=== PATIENT | female | born 1970 | race African-American/Black ===

== ENCOUNTER 2016-12-06 08:25 | Emergency (ER) | payer MEDICARE, MEDICAID ==
[~2016-12-06] VITALS: Ht 160 cm; Wt 117.9 kg
[~2016-12-06 08:25] MED LIST: ACCUPRIL PO; ATENOLOL25 MG PO; AUGMENTIN1 TA2 PO; BACTROBAN CR, 115 GM EX; CLINDAMYCIN300 MG PO; COREG25 MG PO; DILAUDID4 MG PO; FENOFIBRATE160 MG PO; FUROSEMIDE40 MG PO; GABAPENTIN 600600 MG PO; HYDROCODONE/ACE1 TA5 PO; HYDROCODONE1 TABLET PO; HYDROMORPHONE 44 MG PO; INSULIN GL100 UNITS/ SC; KEFLEX 500MG.500 MG PO; KLOR-CON M2020 MEQ PO; LORTAB 5/500 501 TAB PO; METFORMIN1000 MG PO; MINOCYCLINE 10100 MG PO; Monodox100 MG PO; NICODERM C21 MG/24 H TD; NORVASC 10MG. T10 MG PO; OMEPRAZOLE20 MG PO; PHENERGAN 25MG.25 M1 PO; QUINAPRIL20 MG PO; SPIRONOLACTONE25 MG PO; TYLENOL W/CODEI1 TA2 PO; [UNRECOGNIZED DRUG - OTHER] PO
--- NOTE | 2016-12-06 08:42 | Emergency Room Report ---
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 N Clinical Suspician of Infection? Y Mental Status: 1 - Regular (Normal Baseline) Sepsis Risk:Low Sepsis Risk Have you (or family members/close friends) recently traveled outside the [place]? N If Yes, where/when: Have you had exposure to infectious disease within the past month? TB? Other? Specify: Source patient, RN notes reviewed, RN/MD Exam Limitations no limitations Comment This is a 46-year-old Afro-English lady presenting the emergency room that underwent a total abdominal hysterectomy due to a RIGHT ovarian tumor on 07/27/[address] Chakraborty. The patient had some postop complications leading her to be transferred to [facility] on 08[facility]04[facility], leaving her with a dehicient post op wound, that is being packed 2x/day since. Her visiting nurse comes to the house on Wednesdays, to assist her with the wound care. He [facility] surgeon was dr. Martel (per patient). The patient is in this emergency room this morning because her "abdominal pain is different" and "wound drainage has changed color from clear to green". Patient denies any fever, back pain, nausea, or vomiting. ALLERGIES Coded Allergies: codeine (Mild, ITCHING 12/06/16) naproxen (Mild, I-ITCHING 12/06/16) propoxyphene (Mild, ITCHING 12/06/16) tramadol (Mild, ITCHING 12/06/16) Sulfa (Sulfonamide Antibiotics) (Mild, NA-NAUSEA 12/06/16) ciprofloxacin (From Cipro) (Mild, NA-NAUSEA 12/06/16) morphine (Mild, NA-HALLUCINATIONS 12/06/16) Home Medications Reported Medications Furosemide (Furosemide 40MG) 20 MG PO DAILY INSULIN GLARGINE (Lantus 3ML Solostar Pen) 40 UNITS SC BID Potassium Chloride (Klor-Con M20) 20 MEQ PO DAILY METFORMIN HCL (Metformin) 1,000 MG PO BID Fenofibrate (Fenofibrate 160MG (GEQ: Lofibra)) 160 MG PO DAILY Hydromorphone Hcl (Hydromorphone 4MG Tab) 4 MG PO Q6HP PRN PAIN #30 AMLODIPINE BESYLATE (Norvasc) 10 MG PO BID Quinapril Hcl (Quinapril HCl) 40 MG PO DAILY Carvedilol (Coreg 25MG) 25 MG PO BID Omeprazole (Omeprazole 20MG) 20 MG PO DAILY Gabapentin (Gabapentin 600MG) 600 MG PO TID History Medical History General CAD? No Angina: No [place]: No Hypertension? Yes Hyperlipidemia? Yes CHF? No DVT? No PE? No COPD? No Asthma? No Anemia? No GERD? No Gastric ulcers? No GI Bleed? No Hernia? No Thyroid Problems? No Hypothyroidism? No CVA? No Seizures? No Diabetes? Yes Insulin Dependent: Yes Insulin Pump: No Home FSBS? Yes Renal Insuffiency? No End Stage Renal Disease? No UTI? No Stones? No BPH? No GB Disease: Yes Nephritic Syndrome? No Asplenia? No Hepatitis? No Sickle Cell Disease? No Arthritis? No Migraines? No Cataracts? No Glaucoma? No MRSA? Yes HIV? No TB? No Anxiety? No Depression? No Cancer? No More? 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 Family History Family Hx Diabetes Yes CAD No Hypertension Yes Hyperlipidemia Yes Cancer No TB No Social History Smoking Hx Smoker: Current Every Day Smoker Tobacco: Yes Type Cigarettes Packs/day < 1 Pack Alcohol Alcohol: No Review of Systems All Other Systems Reviewed and Negative Gastrointestinal abdominal pain Skin other (wound drainage is different) Physical Exam Vital Signs Vital Signs Date Time Temp Pulse Resp B/P Pulse O2 O2 Flow FiO2 Ox Delivery Rate 12/06 1134 99 18 142/75 100 12/06 0830 98.3 111 18 100 General Appearance normal appearance, WD/WN, mild distress Neck normal inspection, non-tender, supple, full range of motion Respiratory Status Yes: trachea midline, chest symmetrical, non tender chest. No: respiratory distress. Lung Sounds bilateral: normal breath sounds, lungs clear. Cardiovascular normal exam, regular rate/rhythm, no peripheral edema, no gallop, no JVD, no murmur, no rub, normal peripheral pulses Gastrointestinal normal bowel sounds, soft, no organomegaly, horizontal hysterectomy surgical scar with midline dehiscent area, packed with wet-to-dry dressing, with mild greenish discoloration. No foul odor. 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 Medical Decision Making LABS/Meds/Orders Pt receiving controlled substance in ED? No Comment The patient adamantly refuses IV contrast. I described to her the benefits of obtaining any has CT scan of the abdomen and pelvis with IV contrast, that she will have to withhold her metformin for the next 48 hours. Patient refuses multiple times that he contrast. Eventually the CT scan was conducted without IV contrast. On reevaluation patient appears medically stable, in no acute distress, afebrile , nonseptic. She went outside to smoke on multiple occasions, also use the bathroom on several times, visibly, with no acute distress. I went back to her room to reexamine her the patient was using a cell phone. Discussed results with patient is advised the need for her to have a follow-up. Again she refused to see Dr Chakraborty. I discussed case with Dr. Villalta, who has seen sandrine in the past. Advised Dr. Villalta of patient's findings. The Ob[facility]yn recommended to instructed patient to follow-up with her electrocardiogram no surgeon that has recently operated on her, dr. Zayas. Underwent discussed plan of action with patient I learned that patient actually has had this type of pain for the past 7 years, which is why the patient underwent an exploratory laparoscopy with Dr Villalta in 1999, and a hysterectomy in 08/[address] Chakraborty. has actually referred patient to pain management, dr. Gunter, with whom she is waiting on her first evaluation. I don't think patient's wound appears infected, for her comfort I have written her a week of Keflex, and started her on Percogesic as well. Patient has the contact information for Dr. Martel, she will call for an appointment within the next 2 days. If worse (worse pain, fever, any new symptoms), patient advised to return promptly to the same emergency room, for evaluation. Results/Orders Laboratory Tests 12/06/16914: Lactic Acid 1.8 12/06/16914: Amylase 109, Lipase 248 12/06/16914: Sodium 141, Potassium 3.4 L, Chloride 104, Carbon Dioxide 27, BUN 11, Creatinine 0.9, Estimated Creat Clear 145, Estimated GFR (MDRD) 67, Glucose 178 H, Calcium 9.5, Total Bilirubin 0.5, AST 16, ALT 38, Alkaline Phosphatase 90, Total Protein 8.3 H, Albumin 3.6, Globulin 4.7 H, Albumin/Globulin Ratio 0.8 L, WBC 7.6, RBC 4.82, Hgb 13.2, Hct 39.5, MCV 82.0 L, RDW 15.1, Plt Count 366, MPV 6.2 L, Gran % 62.6, Gran # 4.7, Lymphocytes % 28.2, Monocytes % 3.9, Eosinophils % 4.8, Basophils % 0.5, Lymphocytes # 2.1, Monocytes # 0.3, Eosinophils # 0.4, Basophils # 0.0, PUBS MCHC 33.1, MCH 27.2 Orders Procedure Date/time Status DIET-NOTHING BY MOUTH 12/[address] ABD & PELVIS W/O CONTRAST 12/06 0838 Active CULTURE, WOUND 12/[address] ABD/PELVIS REQ 12/06 0859 Complete CULTURE, BLOOD 12/06 0856 Active LACTIC ACID 12/07 0756 Complete URINALYSIS/COMPLETE 12/06 0843 Active LIPASE 12/06 08 Complete CBC WITH AUTO DIFF 12/06 842 Complete CHEM 12 PROFILE 12/06 0843 Complete AMYLASE 12/07 0743 Complete XRAY/CT/US XRAY/CT/US CT abdomen, pelvis CT interpretation by discussed w/radiologist CT Results CT scan of the abdomen and pelvis was done without contrast, as patient refused IV contrast. See virtual radiology report - questionable fluid collection, seroma versus phlegmon Departure Departure Time of Disposition 1117 Disposition DC Home or Self Care(routine) Clinical Impression Primary Impression: Abdominal pain Qualifiers: Abdominal location: lower abdomen, unspecified Qualified Code: R10.30 - Lower abdominal pain, unspecified Condition STABLE Patient Instructions DI for Acute Abdomen Additional Instructions Please follow up with general surgeryDr Martel ([phone]), at your earliest convenience (within 2 days). Discharge Counseling Counseled pt/family regarding diagnosis, test results, medications/RX, home care, follow up needs Comment Please follow up with general surgeryDr Martel ([phone]), at your earliest convenience (within 2 days). Prescriptions Current Visit Scripts ACETAMINOPHEN/DIPHENHYDRAMINE (Percogesic 325-12.5 MG Tablet) 1 TAB PO QIDP PRN pain #20 TAB CEPHALEXIN (Keflex 500MG Capsule) 500 MG PO QID #28 CAP ED Critical Care Critical Care No at [id number]
--- NOTE | 2016-12-06 08:42 | Emergency Room Report ---
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 N Clinical Suspician of Infection? Y Mental Status: 1 - Regular (Normal Baseline) Sepsis Risk:Low Sepsis Risk Have you (or family members/close friends) recently traveled outside the [place]? N If Yes, where/when: Have you had exposure to infectious disease within the past month? TB? Other? 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 The patient had some postop complications leading her to be transferred to [facility] on 08/04/16, leaving her with a dehicient post op wound, that is being packed 2x/day since. Her visiting nurse comes to the house on Wednesdays, to assist her with the wound care. He [facility] surgeon was dr. Martel (per patient). The patient is in this emergency room this morning because her "abdominal pain is different" and "wound drainage has changed color from clear to green". Patient denies any fever, back pain, nausea, or vomiting. ALLERGIES Coded Allergies: codeine (Mild, ITCHING 12/06/16) naproxen (Mild, I-ITCHING 12/06/16) propoxyphene (Mild, ITCHING 12/06/16) tramadol (Mild, ITCHING 12/06/16) Sulfa (Sulfonamide Antibiotics) (Mild, NA-NAUSEA 12/06/16) ciprofloxacin (From Cipro) (Mild, NA-NAUSEA 12/06/16) morphine (Mild, NA-HALLUCINATIONS 12/06/16) Home Medications Reported Medications Furosemide (Furosemide 40MG) 20 MG PO DAILY INSULIN GLARGINE (Lantus 3ML Solostar Pen) 40 UNITS SC BID Potassium Chloride (Klor-Con M20) 20 MEQ PO DAILY METFORMIN HCL (Metformin) 1,000 MG PO BID Fenofibrate (Fenofibrate 160MG (GEQ: Lofibra)) 160 MG PO DAILY Hydromorphone Hcl (Hydromorphone 4MG Tab) 4 MG PO Q6HP PRN PAIN #30 AMLODIPINE BESYLATE (Norvasc) 10 MG PO BID Quinapril Hcl (Quinapril HCl) 40 MG PO DAILY Carvedilol (Coreg 25MG) 25 MG PO BID Omeprazole (Omeprazole 20MG) 20 MG PO DAILY Gabapentin (Gabapentin 600MG) 600 MG PO TID History Medical History General CAD? No Angina: No [place]: No Hypertension? Yes Hyperlipidemia? Yes CHF? No DVT? No PE? No COPD? No Asthma? No Anemia? No GERD? No Gastric ulcers? No GI Bleed? No Hernia? No Thyroid Problems? No Hypothyroidism? No CVA? No Seizures? No Diabetes? Yes Insulin Dependent: Yes Insulin Pump: No Home FSBS? Yes Renal Insuffiency? No End Stage Renal Disease? No UTI? No Stones? No BPH? No GB Disease: Yes Nephritic Syndrome? No Asplenia? No Hepatitis? No Sickle Cell Disease? No Arthritis? No Migraines? No Cataracts? No Glaucoma? No MRSA? Yes HIV? No TB? No Anxiety? No Depression? No Cancer? No More? 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 Family History Family Hx Diabetes Yes CAD No Hypertension Yes Hyperlipidemia Yes Cancer No TB No Social History Smoking Hx Smoker: Current Every Day Smoker Tobacco: Yes Type Cigarettes Packs/day < 1 Pack Alcohol Alcohol: No Review of Systems All Other Systems Reviewed and Negative Gastrointestinal abdominal pain Skin other (wound drainage is different) Physical Exam Vital Signs Vital Signs Date Time Temp Pulse Resp B/P Pulse O2 O2 Flow FiO2 Ox Delivery Rate 12/06 1134 99 18 142/75 100 12/06 0830 98.3 111 18 100 General Appearance normal appearance, WD/WN, mild distress Neck normal inspection, non-tender, supple, full range of motion Respiratory Status Yes: trachea midline, chest symmetrical, non tender chest. No: respiratory distress. Lung Sounds bilateral: normal breath sounds, lungs clear. Cardiovascular normal exam, regular rate/rhythm, no peripheral edema, no gallop, no JVD, no murmur, no rub, normal peripheral pulses Gastrointestinal normal bowel sounds, soft, no organomegaly, horizontal hysterectomy surgical scar with midline dehiscent area, packed with wet-to-dry dressing, with mild greenish discoloration. No foul odor. 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 Medical Decision Making LABS/Meds/Orders Pt receiving controlled substance in ED? No Comment The patient adamantly refuses IV contrast. I described to her the benefits of obtaining any has CT scan of the abdomen and pelvis with IV contrast, that she will have to withhold her metformin for the next 48 hours. Patient refuses multiple times that he contrast. Eventually the CT scan was conducted without IV contrast. On reevaluation patient appears medically stable, in no acute distress, afebrile , nonseptic. She went outside to smoke on multiple occasions, also use the bathroom on several times, visibly, with no acute distress. I went back to her room to reexamine her the patient was using a cell phone. Discussed results with patient is advised the need for her to have a follow-up. Again she refused to see Dr Chakraborty. I discussed case with Dr. Villalta, who has seen sandrine in the past. Advised Dr. Villalta of patient's findings. The ObGyn recommended to instructed patient to follow-up with her electrocardiogram no surgeon that has recently operated on her, dr. Zayas. Underwent discussed plan of action with patient I learned that patient actually has had this type of pain for the past 7 years, which is why the patient underwent an exploratory laparoscopy with Dr Villalta in 1999, and a hysterectomy in 08/[address]akraborty. has actually referred patient to pain management, dr. Gunter, with whom she is waiting on her first evaluation. I don't think patient's wound appears infected, for her comfort I have written her a week of Keflex, and started her on Percogesic as well. Patient has the contact information for Dr. Martel, she will call for an appointment within the next 2 days. If worse (worse pain, fever, any new symptoms), patient advised to return promptly to the same emergency room, for evaluation. Results/Orders Laboratory Tests 12/06/16914: Lactic Acid 1.8 12/06/16914: Amylase 109, Lipase 248 12/06/16914: Sodium 141, Potassium 3.4 L, Chloride 104, Carbon Dioxide 27, BUN 11, Creatinine 0.9, Estimated Creat Clear 145, Estimated GFR (MDRD) 67, Glucose 178 H, Calcium 9.5, Total Bilirubin 0.5, AST 16, ALT 38, Alkaline Phosphatase 90, Total Protein 8.3 H, Albumin 3.6, Globulin 4.7 H, Albumin/Globulin Ratio 0.8 L, WBC 7.6, RBC 4.82, Hgb 13.2, Hct 39.5, MCV 82.0 L, RDW 15.1, Plt Count 366, MPV 6.2 L, Gran % 62.6, Gran # 4.7, Lymphocytes % 28.2, Monocytes % 3.9, Eosinophils % 4.8, Basophils % 0.5, Lymphocytes # 2.1, Monocytes # 0.3, Eosinophils # 0.4, Basophils # 0.0, PUBS MCHC 33.1, MCH 27.2 Orders Procedure Date/time Status DIET-NOTHING BY MOUTH 12/[address] ABD & PELVIS W/O CONTRAST 12/06 0838 Active CULTURE, WOUND 12/[address] ABD/PELVIS REQ 12/06 0859 Complete CULTURE, BLOOD 12/06 0856 Active LACTIC ACID 12/07 0756 Complete URINALYSIS/COMPLETE 12/06 0843 Active LIPASE 12/06 08 Complete CBC WITH AUTO DIFF 12/06 842 Complete CHEM 12 PROFILE 12/06 0843 Complete AMYLASE 12/07 0743 Complete XRAY/CT/US XRAY/CT/US CT abdomen, pelvis CT interpretation by discussed w/radiologist CT Results CT scan of the abdomen and pelvis was done without contrast, as patient refused IV contrast. See virtual radiology report - questionable fluid collection, seroma versus phlegmon Departure Departure Time of Disposition 1117 Disposition DC Home or Self Care(routine) Clinical Impression Primary Impression: Abdominal pain Qualifiers: Abdominal location: lower abdomen, unspecified Qualified Code: R10.30 - Lower abdominal pain, unspecified Condition STABLE Patient Instructions DI for Acute Abdomen Additional Instructions Please follow up with general surgeryDr Martel ([phone]), at your earliest convenience (within 2 days). Discharge Counseling Counseled pt/family regarding diagnosis, test results, medications/RX, home care, follow up needs Comment Please follow up with general surgeryDr Martel ([phone]), at your earliest convenience (within 2 days). Prescriptions Current Visit Scripts ACETAMINOPHEN/DIPHENHYDRAMINE (Percogesic 325-12.5 MG Tablet) 1 TAB PO QIDP PRN pain #20 TAB CEPHALEXIN (Keflex 500MG Capsule) 500 MG PO QID #28 CAP ED Critical Care Critical Care No at 2525
[2016-12-06 09:24] LABS: LYMPH # 2.1 K/mm3 (0.7-4.5); LYMPH % 28.2 % (10-50.0)
--- OUTSIDE RECORDS SUMMARY | 2016-12-06 09:24 | External Medical Summary Rpt ---
Demographics Preferred Language [place] Marital Status Unknown Anglican Affiliation Unknown Race Unknown Ethnic Group Unknown Author Author , Organization [employer] Address Unknown Phone Unavailable Purpose Continuity of Care Document - through 2016 Immunization No patient found.
--- OUTSIDE RECORDS SUMMARY | 2016-12-06 09:24 | External Medical Summary Rpt ---
Demographics Preferred Language Gibralt[place] Marital Status Unknown Moravian Affiliation Unknown Race Unknown Ethnic Group Unknown Author Author , Organization [employer] Address Unknown Phone Unavailable Purpose Continuity of Care Document - through 2016 Immunization No patient found.
[2016-12-06 09:31] LABS: HEMOGLOBIN 13.2 g/dL (12.2-16.2)
[2016-12-06] MEDS ORDERED: PERCOGESIC1 TAB PO (11:26)
[2016-12-06] MEDS ORDERED: KEFLEX 500MG.500 MG PO (11:26)
[2016-12-06 11:34] VITALS: BP 142/75
--- NOTE | 2016-12-07 09:20 | RADIOLOGY REPORT PS360 ---
CT ABD PELVIS W/O CONTRAST Ordering Physician: Stephon Pena MD Patient Age: 46 years: Female HISTORY: POST OP ABDOMINAL PAIN,DEHISCIENT WOUND Open wound. Surgery date July, TECHNIQUE: Helical CT scans abdomen pelvis with no oral or IV contrast COMPARISON is made to 08/03/2016 CT abdomen pelvis FINDINGS Lung bases appear clear no acute findings. Heart normal size. Abdomen./Pelvis. Lack of oral and IV contrast decreases sensitivity. Liver, pancreas, spleen unremarkable. Gallbladder surgically removed. No biliary ductal dilatation. Adrenals generous in size but appear stable & satisfactory Kidneys. No urinary tract calculi nor obstruction Large bowel with moderate to generous stool throughout the colon. Small bowel unremarkable. The vertical incision below the umbilicus apparently just slightly left midline appears to have has undergone dehiscent since July 2016 CT. There is ventral midline pelvic wall scarring noted overlying the thickened left rectus muscle at about the depth of this prior incision. There are some subtle less dense areas within this left rectus. It difficult to exclude some subtle residual fluid or inflammatory changes within this area.. This area should be inspected visually. May need to consider a follow-up postcontrast CT to better evaluate . There is induration and stranding the margins of the deep incision which may reflect granulation here along the inferior aspect of patient's panniculus . Findings do not improve or follow-up with IV contrast would be warranted. Osseous structures intact. IMPRESSION 1. No acute intra-abdominal findings. 2. Sequela from ventral abdominal incision dehiscence. There is induration about the deep wound margins as well as at its deep margin at left rectus.. This dehiscent wound extends deep through the inferior aspect of the the patient's panniculus. There is thickening of the left rectus muscle at the depth of this dehiscent incision,... Difficult to exclude some residual fluid or infection within this, enlarged and slightly inhomogeneous left rectus muscle noting areas of subtle less density within it.-This structure Should be accessible to visual visual inspection and requires correlation. If symptoms do not improve clinically a follow-up CT with contrast may be of benefit for the evaluate.
== END 2016-12-06 11:35 | disposition home or self-care (01) ==
LOC: ER 08:25
PROVIDERS: Emergency Medicine
DX: R10.30 Lower abdominal pain, unspecified (principal); I10 Essential (primary) hypertension; E11.9 Type 2 diabetes mellitus without complications; Z79.4 Long term (current) use of insulin; Z72.0 Tobacco use

== ENCOUNTER → 2017-03-24 | Outpatient (CLI) | payer MEDICARE, MEDICAID ==
[~2017-03-24] MED LIST changes: +DOXYCYCLINE HY100 MG PO; +LEVEMIR100 U/ML SC; +PERCOGESIC1 TAB PO
--- NOTE | 2017-03-24 12:38 | RADIOLOGY REPORT PS360 ---
EXAM: LUMBAR SPINE 5 VIEWS HISTORY: Low back pain with left hip pain LEFT THIGH PAIN ORDERING PHYSICIAN: Leandro Griffin MD PATIENT AGE: 46 years COMPARISON: None FINDINGS: Normal alignment. No fracture or dislocation. No lytic or blastic change. There are small osteophytes present from L2 to L5. The disc spaces are preserved. There are mild facet arthritic changes at L5-S1 bilaterally. Incidental atherosclerotic vascular calcification of the aorta. The left upper quadrant calcifications likely in the spleen. At least one may be in the left kidney. IMPRESSION: 1. Lumbar spondylosis with facet arthritic change and vertebral end plate osteophytes 2. Atherosclerotic calcification of the aorta
--- NOTE | 2017-03-24 12:39 | RADIOLOGY REPORT PS360 ---
HIP LT 2-3V W/PELVIS IF PERFOR HISTORY: LEFT THIGH PAIN ORDERING PHYSICIAN: Leandro Griffin MD PATIENT AGE: 46 years COMPARISON: None FINDINGS: No fracture or dislocation is evident. No significant degenerative change. No lytic or blastic change. Small nonspecific calcification present just inferior to the ischial tuberosity and could represent an old avulsion injury IMPRESSION: 1. Negative left hip. 2. Possible old avulsion injury left ischial tuberosity
== END ==
LOC: RAD 11:18
DX: M79.652 Pain in left thigh (principal)

== ENCOUNTER 2017-05-04 17:35 | Emergency (ER) | payer MEDICARE, MEDICAID ==
[~2017-05-04] VITALS: Ht 160 cm; Wt 100.7 kg
--- NOTE | 2017-05-04 17:45 | Emergency Room Report ---
History of Present Illness Time Seen by [id number] Presenting Problem in Triage Pt arrived:Walked Presenting Problem:PT C/O LEFT LEG PAIN. ADVISES SHE HAS PAIN IN THE LOWER BACK THAT GOES DOWN INTO THE LEG. 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 N Clinical Suspician of Infection? N Mental Status: 1 - Regular (Normal Baseline) Sepsis Risk:Low Sepsis Risk Have you (or family members/close friends) recently traveled outside the [place]? N If Yes, where/when: Have you had exposure to infectious disease within the past month? N TB? Other? Specify: Comment Patient complains of low back pain into her LEFT anterior thigh. This is a chronic problem that has been going on for years. She previously was a patient of Dr. Pineda in [facility]. She then became a patient of Dr. Frausto. She is now a patient of Dr. Griffin. She has been treated by all of them for this problem. She says most recently Dr. Griffin did x-rays on her hip and back and sent her to physical therapy. She says that the pain has worsened over the past couple of weeks so that it feels like a hammer throbbing in her LEFT thigh. She says she's been treated with steroids in the past which caused her blood sugar to rock it up. She also says that she takes a lot of ibuprofen which does not help at all. She says that Dr. Griffin told her her x-ray showed arthritis of the spine. She also complains of LEFT hand pain for 2 weeks. She has screws in her hand from a previous surgery many years ago. She wonders whether there is a problem with the screws. Pain improves when she sits on her hand. No recurrent trauma. She wants this evaluated also. ALLERGIES Coded Allergies: codeine (Mild, ITCHING 12/06/16) naproxen (Mild, I-ITCHING 12/06/16) propoxyphene (Mild, ITCHING 12/06/16) tramadol (Mild, ITCHING 12/06/16) Sulfa (Sulfonamide Antibiotics) (Mild, NA-NAUSEA 12/06/16) ciprofloxacin (From Cipro) (Mild, NA-NAUSEA 12/06/16) morphine (Mild, NA-HALLUCINATIONS 12/06/16) Home Medications Reported Medications Potassium Chloride (Klor-Con M20) 20 MEQ PO DAILY METFORMIN HCL (Metformin) 1,000 MG PO BID Fenofibrate (Fenofibrate 160MG (GEQ: Lofibra)) 160 MG PO DAILY AMLODIPINE BESYLATE (Norvasc) 10 MG PO BID Carvedilol (Coreg 25MG) 25 MG PO BID Omeprazole (Omeprazole 20MG) 20 MG PO DAILY Gabapentin (Gabapentin 600MG) 600 MG PO TID Furosemide (Furosemide 40MG) 40 MG PO DAILY Quinapril Hcl (Quinapril HCl) 20 MG PO DAILY Insulin Detemir (Levemir 10ML VIAL) 20 UNITS SC DAILY Doxycycline Hyclate 100 MG PO BID History Medical History General CAD? No Angina: No [place]: No Hypertension? Yes Hyperlipidemia? Yes CHF? No DVT? No PE? No COPD? No Asthma? No Anemia? No GERD? No Gastric ulcers? No GI Bleed? No Hernia? No Thyroid Problems? No Hypothyroidism? No CVA? No Seizures? No Diabetes? Yes Insulin Dependent: Yes Insulin Pump: No Home FSBS? Yes Renal Insuffiency? No End Stage Renal Disease? No UTI? No Stones? No BPH? No GB Disease: Yes Nephritic Syndrome? No Asplenia? No Hepatitis? No Sickle Cell Disease? No Arthritis? No Migraines? No Cataracts? No Glaucoma? No MRSA? Yes HIV? No TB? No Anxiety? No Depression? No Cancer? No More? No Immunization Hx DT/Tetanus > 10 Years Ago Flu Refused Pneumonia Refuses Surgical Hx Previous Surgery?Y Gallbladd LEFT HAND DIAGNOSTIC LAP D & C ABCESSX2 Family History Family Hx Diabetes Yes CAD No Hypertension Yes Hyperlipidemia Yes Cancer No TB No Social History Smoking Hx Packs/day < 1 Pack Alcohol Alcohol: No Additionial History Additional History Lumbar spine and LEFT hip x-rays at this facility on 03/24/17 showed negative LEFT hip with possible old avulsion injury of the LEFT is she'll tuberosity. Lumbar spondylosis with facet arthritic change and vertebral endplate osteophytes. Review of Systems All Other Systems Reviewed and Negative Constitutional denies fever Genitourinary denies: dysuria, frequency, hesitancy. Musculoskeletal see HPI, back pain, joint pain Psychiatric/Neurological denies numbness, denies weakness Physical Exam Vital Signs Vital Signs Date Time Temp Pulse Resp B/P Pulse O2 O2 Flow FiO2 Ox Delivery Rate 05/04 1746 98.4 100 16 147/96 98 General Appearance no apparent distress Respiratory Status No: respiratory distress. Cardiovascular regular rate/rhythm Back vertebral tenderness (mid lumbar) Extremities no edema or deformity of LEFT hand. Old surgical scar. Normal range of motion and neurovascular status. No significant tenderness. No erythema. Neurologic alert, no motor/sensory deficits Medical Decision Making LABS/Meds/Orders Pt receiving controlled substance in ED? Yes Bar was queried for this patient? Yes Comment [id number] rxs. last 4 rxs are gabapentin. last pain med tramadol 12/22/16. Results/Orders Orders Procedure Date/time Status HAND-LT-3 VIEWS 05/04 180 Active XRAY/CT/US XRAY/CT/US XRAY hand Comment X-ray interpreted by Ankit Read MD. Negative for fracture, dislocation, or foreign body. 3 orthopedic screws intact. Departure Departure Disposition DC Home or Self Care(routine) Clinical Impression Primary Impression: Low back pain with sciatica Qualifiers: Chronicity: chronic Back pain laterality: left Sciatica laterality: sciatica of left side Qualified Code: M54.42 - Lumbago with sciatica, left side Secondary Impressions: Left hand pain Condition STABLE Referrals Elias FREGOSO,Leandro (Family) Patient Instructions DI for Back Pain With Sciatica, DI for Hand Pain Additional Instructions Additional instructions for BACK PAIN: See your physician as soon as possible for further evaluation. Return immediately if back pain becomes intolerable, or if fever, numbness or weakness of your legs, loss of control of your bowels or bladder. Additional instructions for CONTROLLED SUBSTANCES: You have been prescribed a medication that is a controlled substance. Controlled substances include pain medications known as opiates and sedative nerve medications known as benzodiazepines. Some common opiates include: Codeine (such as Tylenol #3) Hydrocodone (Vicodin, Lortab, Lorcet, Negley) Oxycodone (Percocet, Percodan, Oxycodone, Oxy IR) Some common benzodiazepines include: Diazepam (Valium) Lorazepam (Ativan) Alprazolam (Xanax) Clonazepam (Klonopin) Oxazepam (Serax) All of these controlled substances are highly addictive and frequently abused. Misuse can and frequently does lead to addiction as well as overdose and . Short term supplies, 3 days or less, are prescribed because of the highly addictive nature of the medication. Any of the controlled substance medication NOT taken should be disposed of properly and NOT SAVED. The recommended method of disposing of unused medications is: Place the medicines in a sealable plastic bag. If the medicine is a solid, crush it or add water to dissolve it. Add something undesirable (cat litter, coffee grounds, etc.) Dispose of sealed bag in household trash Do not flush or pour unused medicines down a sink or drain. Also, because of the addictive nature and frequent abuse, these medications are sometimes stolen. These medications should be kept in a safe place where they cannot be stolen. Do not keep them in your car or purse. Lost or stolen prescriptions for controlled substances WILL NOT BE REFILLED in this emergency department, regardless of whether a police report was filed. Prescriptions Current Visit Scripts HYDROCODONE/ACETAMINOPHEN (Negley 5-325 Tablet) 1 TAB PO Q6HP PRN pain #10 TAB ED Critical Care Critical Care No at [id number]
--- NOTE | 2017-05-04 18:23 | RADIOLOGY REPORT PS360 ---
HAND-LT-3 VIEWS HISTORY: Hand pain, old injury, old fracture hand pain ORDERING PHYSICIAN: Ankit Read MD PATIENT AGE: 46 years COMPARISON: None FINDINGS: No acute fracture or dislocation. No lytic or blastic change. There are 3 small screws in the proximal and mid aspect of the fourth metacarpal. There is a faint longitudinal lucency of this area likely from old injury. No evidence of nonunion. No evidence of osteomyelitis. The screws are well seated. No soft tissue gas. IMPRESSION: Postsurgical changes of the fourth metacarpal, no acute finding
[2017-05-04] MEDS ORDERED: NORCO 325 MG-51 TAB PO (18:24)
[2017-05-04 18:42] VITALS: BP 123/85
--- OUTSIDE RECORDS SUMMARY | 2017-05-07 13:29 | External Medical Summary Rpt | CCD ---
Demographics Preferred Language Macedonian Marital Status Unknown Amish Affiliation Unknown Race Unknown Ethnic Group Unknown Author Author , MARA TERRY Address Unknown Phone Immunization No patient found.
--- OUTSIDE RECORDS SUMMARY | 2017-05-07 13:29 | External Medical Summary Rpt | CCD ---
Demographics Preferred Language Latvian Marital Status Unknown Temple Affiliation Unknown Race Unknown Ethnic Group Unknown Author Author , MARA TERRY Address Unknown Phone Immunization No patient found.
== END 2017-05-04 18:42 | disposition home or self-care (01) ==
LOC: ER 17:35
DX: M54.42 Lumbago with sciatica, left side (principal); M79.642 Pain in left hand; Z88.6 Allergy status to analgesic agent; Z88.2 Allergy status to sulfonamides; I10 Essential (primary) hypertension; E11.9 Type 2 diabetes mellitus without complications; Z79.4 Long term (current) use of insulin

== ENCOUNTER 2017-06-05 11:53 | Emergency (ER) | payer MEDICARE, MEDICAID ==
[~2017-06-05] VITALS: Ht 160 cm; Wt 98.0 kg
[~2017-06-05 11:53] MED LIST changes: +NORCO 325 MG-51 TAB PO
--- OUTSIDE RECORDS SUMMARY | 2017-06-05 12:13 | External Medical Summary Rpt | CCD ---
Author Author , MARA TERRY Address Unknown Phone [email or web address] Purpose Continuity of Care Document - 08-07-2012 through 2016 Problems Code Diagnosis DOS Provider Status E11.9 TYPE 2 05-12-2017 DIABETES MELLITUS WITHOUT COMPLICATIO NS F17.210 NICOTINE 05-12-2017 DEPENDENCE, CIGARETTES, UNCOMPLICAT ED I10 ESSENTIAL 05-12-2017 (PRIMARY) HYPERTENSIO N K04.7 PERIAPICAL 05-12-2017 ABSCESS WITHOUT SINUS K08.89 OTHER 05-12-2017 SPECIFIED DISORDERS OF TEETH AND SUPPORTING STRUCTURES Z79.899 OTHER LONG 05-12-2017 TERM (CURRENT) DRUG THERAPY Z88.6 ALLERGY 05-12-2017 STATUS TO ANALGESIC AGENT STATUS E13.9 OTHER SPECIFIED DIABETES MELLITUS WITHOUT COMPLICATIO NS G89.18 OTHER ACUTE POSTPROCEDU RAL PAIN M51.16 INTERVERTEB RAL DISC DISORDERS W RADICULOPAT HY, 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 complet 013 ed 18:30 medical complet 013 ly ed 18:30 advisab le, the test should be confirm ed by a quantit ative need to complet 013 be ed 18:30 obtaine d and tested. If waiting 48 hours is not diagnos complet 013 is of ed 18:30 pregnan cy. After 48 hours, another specime n november NOTE: A complet 013 serum ed 18:30 test result of Positiv e, <25 mIU/ml is not a definit vane BETA NEGATIV NL: complet HCG (S) 013 E NEGATIV ed 18:30 E RAPID STREP SCREEN (08-07-2012 18:30) RAPID NEGATIV NL: complet STREP 013 E NEGATIV ed 18:30 E INFLUENZA TYPE A B RAPID (08-07-2012 18:30) _INFLUE complet 013 NZA ed 18:30 ANTIGEN A + B_ CBC W DIFF AUTOMATED (08-07-2012 18:30) Manual NOT complet Diff 013 INDICAT ed 18:30 ED BA# -14-2 0.02 0.00 - complet 013 K/uL 0.20 ed 18:30 EO# -14-2 0.31 0.00 - complet 013 K/uL 0.70 ed 18:30 NE# -14-2 5.79 2.00 - complet 013 K/uL 6.90 ed 18:30 MO# -14-2 0.48 0.00 - complet 013 K/uL 0.90 ed 18:30 LY# -14-2 2.29 0.60 - complet 013 K/uL 3.40 ed 18:30 BA% -14-2 0.20 % 0.00 - complet 013 2.50 ed 18:30 EO% -14-2 3.50 % 0.00 - complet 013 7.00 ed 18:30 NE% -14-2 65.1 % 37.0 - complet 013 80.0 ed 18:30 MO% -14-2 5.4 % 0.0 - complet 013 12.0 ed 18:30 LY% -14-2 25.8 % 10.0 - complet 013 50.0 ed 18:30 RDW 14-2 22.4 % 11.60 - Above complet 013 14.80 high ed 18:30 normal MCHC 08-07-2 33.6 31.80 - complet 013 g/dL 35.40 ed 18:30 MCH -14-2 22.3 pg 27.0 - Below complet 013 31.20 low ed 18:30 normal MCV 66.4 fL 80.0 - Below complet 013 97.0 low ed 18:30 normal HCT 35 % 37.70 - Below complet 013 53.70 low ed 18:30 normal HGB 11.8 12.20 - Below complet 013 g/dL 18.10 low ed 18:30 normal RBC 5.29 4.04 - complet 013 M/uL 6.13 ed 18:30 WBC 8.9 4.60 - complet 013 K/uL 10.20 ed 18:30
--- OUTSIDE RECORDS SUMMARY | 2017-06-05 12:13 | External Medical Summary Rpt | CCD ---
Demographics Preferred Language Divehi Marital Status Unknown Sikhism Affiliation Unknown Race Unknown Ethnic Group Unknown Author Author , MARA TERRY Address Unknown Phone Immunization No patient found.
--- OUTSIDE RECORDS SUMMARY | 2017-06-05 12:13 | External Medical Summary Rpt | CCD ---
Demographics Preferred Language Korean Marital Status Unknown Pentecostal Affiliation Unknown Race Unknown Ethnic Group Unknown Author Author , MARA TERRY Address Unknown Phone Immunization No patient found.
--- OUTSIDE RECORDS SUMMARY | 2017-06-05 12:13 | External Medical Summary Rpt | CCD ---
Author Author , MARA TERRY Address Unknown Phone [email or web address] Purpose Continuity of Care Document - 08-07-2012 [...] OUT D/T PT LV BEF SEEN BY [facility] PROV Z78.9 OTHER SPECIFIED HEALTH STATUS [...]
--- NOTE | 2017-06-05 12:16 | Emergency Room Report ---
History of Present Illness Time Seen by [id number] Presenting Problem in Triage Pt arrived:Walked Presenting Problem:SLIPPED ON BLANKET AND BENT L GREAT TOE BACK , PAIN RUNS UP INTO TOP OF FOOT . 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 Y Clinical Suspician of Infection? N Mental Status: 1 - Regular (Normal Baseline) Sepsis Risk:Possible Sepsis Risk Have you (or family members/close friends) recently traveled outside the [place]? N If Yes, where/when: Have you had exposure to infectious disease within the past month? N TB? Other? Specify: i AGREE WITH THE ABOVE HX. Source patient, RN notes reviewed Exam Limitations no limitations ALLERGIES Coded Allergies: codeine (Mild, ITCHING 12/06/16) naproxen (Mild, I-ITCHING 12/06/16) propoxyphene (Mild, ITCHING 12/06/16) tramadol (Mild, ITCHING 12/06/16) Sulfa (Sulfonamide Antibiotics) (Mild, NA-NAUSEA 12/06/16) ciprofloxacin (From Cipro) (Mild, NA-NAUSEA 12/06/16) morphine (Mild, NA-HALLUCINATIONS 12/06/16) Home Medications Active Scripts HYDROCODONE/ACETAMINOPHEN ([place] 5-325 Tablet) 1 TAB PO Q6HP PRN pain #10 TAB Prov: 05/04/17 Reported Medications Potassium Chloride (Klor-Con M20) 20 MEQ PO DAILY METFORMIN HCL (Metformin) 1,000 MG PO BID Fenofibrate (Fenofibrate 160MG (GEQ: Lofibra)) 160 MG PO DAILY AMLODIPINE BESYLATE (Norvasc) 10 MG PO BID Carvedilol (Coreg 25MG) 25 MG PO BID Omeprazole (Omeprazole 20MG) 20 MG PO DAILY Gabapentin (Gabapentin 600MG) 600 MG PO TID Furosemide (Furosemide 40MG) 40 MG PO DAILY Quinapril Hcl (Quinapril HCl) 20 MG PO DAILY Insulin Detemir (Levemir 10ML VIAL) 20 UNITS SC DAILY History Medical History General CAD? No Angina: No [place]: No Hypertension? Yes Hyperlipidemia? Yes CHF? No DVT? No PE? No COPD? No Asthma? No Anemia? No GERD? No Gastric ulcers? No GI Bleed? No Hernia? No Thyroid Problems? No Hypothyroidism? No CVA? No Seizures? No Diabetes? Yes Insulin Dependent: Yes Insulin Pump: No Home FSBS? Yes Renal Insuffiency? No End Stage Renal Disease? No UTI? No Stones? No BPH? No GB Disease: Yes Nephritic Syndrome? No Asplenia? No Hepatitis? No Sickle Cell Disease? No Arthritis? No Migraines? No Cataracts? No Glaucoma? No MRSA? Yes HIV? No TB? No Anxiety? No Depression? No Cancer? No More? 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 Respiratory no symptoms reported Cardiovascular no symptoms reported Gastrointestinal no symptoms reported Genitourinary no symptoms reported. Musculoskeletal see HPI Skin no symptoms reported Psychiatric/Neurological no symptoms reported Physical Exam Vital Signs Vital Signs Date Time Temp Pulse Resp B/P Pulse O2 O2 Flow FiO2 Ox Delivery Rate 06/05 1200 98.4 96 20 151/85 99 - WBC >12,000 or <4,000 or 10% bands? 2 or more SIRS Criteria Met? B/P:151/85 MAP:107 Creatinine >2.0? UA output<0.5ml/kg/hr for 2 hrs? Platelet count >100,000? Lactate >2.0mmol/1? INR >1.2 or PTT > than 60 sec? Evidence of Organ Dysfunction? Provider documented clinical suspician of infection? N Sepsis Criteria Count: 2 Sepsis Risk: Possible Sepsis Risk General Appearance normal appearance, WD/WN Eye Exam - bilateral eye normal exam, bilateral eye PERRL, bilateral eye EOMI Ear, Nose, Throat hearing grossly normal, normal ENT inspection Neck normal inspection, non-tender, supple, full range of motion Respiratory Status Yes: trachea midline, chest symmetrical, non tender chest. No: respiratory distress. Lung Sounds bilateral: normal breath sounds, lungs clear. Cardiovascular normal exam, regular rate/rhythm, no peripheral edema, no gallop, no JVD, no murmur, no rub, normal peripheral pulses Gastrointestinal normal bowel sounds, normal exam, non tender, soft, no organomegaly Extremities normal inspection, MAXIMUM TENDERNESS OVER THE right BIG TOE RADIATING TO right FOOT Neurologic alert, access services representative II-XII nml as tested, normal exam, oriented x 3 Reflexes Reflexes normal Yes Skin intact, normal color, warm/dry Medical Decision Making LABS/Meds/Orders Pt receiving controlled substance in ED? No Results/Orders Orders Procedure Date/time Status TOE-LT-1ST DIGIT(GREAT)-3VIEWS 06/05 121 Active FOOT-LT-2 VIEWS 06/05 121 Active XRAY/CT/US XRAY/CT/US XRAY foot, toe(s) XR interpretation by reviewed by me Xray Results abnormal, fracture proximal first phalanges Departure Departure Time of Disposition 1214 Disposition DC Home or Self Care(routine) Clinical Impression Primary Impression: Toe fracture, left Condition STABLE Referrals Leandro Alberto MD (Family) Additional Instructions 1- ramana tape 2- elevtae. 3- rest 4- oce 5- lortab' 6- follow up with Dr. Wooten in am 7- follow up with César alberto on final x RAY Discharge Counseling Counseled pt/family regarding diagnosis, test results, medications/RX, home care, follow up needs Prescriptions Current Visit Scripts HYDROCODONE 5MG/APAP 325MG (Hydrocodon-Acetaminophen 5-325) 1 TAB PO Q8HP PRN PAIN #6 TAB ED Critical Care Critical Care No If Critical Care minutes are documented, the time involved in the performance of seperately reportable procedures was not counted toward critical care time documented. I directly delivered medical care to this critically ill and/or injured patient. Timely evaluation and treatment was necessary to address the significant organ system(s) dysfunction present in this patient. at 1254
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
[2017-06-05] MEDS ORDERED: HYDROCODONE-APA1 TA1 PO (12:54)
[2017-06-05 13:11] VITALS: BP 151/77
--- NOTE | 2017-06-05 14:48 | RADIOLOGY REPORT PS360 ---
FOOT-LT-2 VIEWS HISTORY: Pain following injury BENT TOE BACKWARDS ORDERING PHYSICIAN: Prabhu Bender MD PATIENT AGE: 46 years COMPARISON: None FINDINGS: Nondisplaced comminuted fracture involves the mid shaft of the proximal phalanx of the great toe had both a transverse and longitudinal component No other abnormalities evident. IMPRESSION: Comminuted nondisplaced fracture proximal phalanx great toe
--- NOTE | 2017-06-05 14:49 | RADIOLOGY REPORT PS360 ---
TOE-LT-1ST DIGIT(GREAT)-3VIEWS HISTORY: Pain following injury BENT TOE BACKWARDS ORDERING PHYSICIAN: Prabhu Bender MD PATIENT AGE: 46 years COMPARISON: None FINDINGS: There is a comminuted nondisplaced fracture involving the midshaft of the proximal phalanx of the great toe with both a transverse and longitudinal component. No intra-articular involvement evident. IMPRESSION: Comminuted fracture proximal phalanx great toe
== END 2017-06-05 13:11 | disposition home or self-care (01) ==
LOC: ER 11:53
DX: S92.412A Displaced fracture of proximal phalanx of left great toe, initial encounter for closed fracture (principal); W01.0XXA Fall on same level from slipping, tripping and stumbling without subsequent striking against object, initial encounter; Y92.9 Unspecified place or not applicable; I10 Essential (primary) hypertension; E78.5 Hyperlipidemia, unspecified; E11.9 Type 2 diabetes mellitus without complications; F17.210 Nicotine dependence, cigarettes, uncomplicated; Z86.14 Personal history of Methicillin resistant Staphylococcus aureus infection; Z88.3 Allergy status to other anti-infective agents; Z88.5 Allergy status to narcotic agent; Z88.2 Allergy status to sulfonamides; Z88.8 Allergy status to other drugs, medicaments and biological substances; Z79.4 Long term (current) use of insulin; Z79.891 Long term (current) use of opiate analgesic; Z79.899 Other long term (current) drug therapy

== ENCOUNTER 2017-07-08 09:46 | Day surgery (SDC) | payer MEDICARE, MEDICAID ==
[~2017-07-08] VITALS: Ht 160 cm; Wt 101.2 kg
[~2017-07-08 09:46] MED LIST changes: +HYDROCODONE-APA1 TA1 PO
[2017-07-08 09:58] VITALS: BP 144/80
[2017-07-08 10:34] VITALS: BP 140/88
--- NOTE | 2017-07-08 10:38 | Procedure Note ---
Procedure detail Date of procedure: 07/08/17 Anesthesiologist: Steve Linares Complications: None Pre-procedure diagnosis: LEFT sacroiliitis Post-procedure diagnosis: Same Indications for procedure: Very pleasant 46-year-old white female that presents for procedure clinic today for LEFT SI joint injection. Patient has extreme point tenderness over the LEFT SI joint upon examination. She describes an SI joint pain as constant, sharp, stabbing. Procedure detail: Procedure: Left sacroiliac injection under fluoroscopy Informed consent was obtained and the risk and benefits of the procedure were explained to the patient.~ The patient was taken to the procedure room and noninvasive monitors were placed including noninvasive blood pressure cuff and pulse oximeter.~ The patient was placed prone on the procedure table.~ The~ left hip was cleansed using Betadine as a cleansing solution.~ C-arm fluorosocpy was used to view the left SI joint.~ The skin and subcutaneous tissues were anesthetized using Lidocaine 1.5% and a 25-gauge needle.~ After this, a 22-gauge spinal needle was inserted under fluoroscopic guidance into the inferior aspect of the left SI joint.~ Omnipaque dye was injected and a good spread was seen throughout the joint.~ After this, approximately 5 mL of bupivacaine 0.25% and Depo-Medrol 20 mg was incrementally injected into the sacroiliac joint.~ The patient tolerated the procedure well with no complications.~ The patient was observed in the Pain Clinic for a period of 30-45 minutes, then discharged home neurologically intact.~ Plan and disposition: Patient was evaluated 10 minutes post procedure. She reports 75 percent improvement terms of her LEFT hip pain. I explained in detail to the patient regarding the cortisone increasing her blood sugar. She voices understanding. at 1037
[2017-07-08 10:46] VITALS: BP 147/82
== END 2017-07-08 10:48 | disposition home or self-care (01) ==
LOC: PM 09:46
PROC: 3E0U33Z Introduction of Anti-inflammatory into Joints, Percutaneous Approach (ICD-10-PCS; principal; 2017-07-08)
PROC: 3E0U3BZ Introduction of Anesthetic Agent into Joints, Percutaneous Approach (ICD-10-PCS; 2017-07-08)
DX: M46.1 Sacroiliitis, not elsewhere classified (principal)
CPT/HCPCS: G0260; J1030